=== PATIENT | male | born 1975 | race Caucasian/White ===

== ENCOUNTER 2017-02-14 17:34 | Inpatient (IN) | payer OTHER ==
[~2017-02-14] VITALS: Ht 170.2 cm; Wt 77.1 kg
[2017-02-14 17:52] VITALS: BP_SYST 137
[2017-02-14] MEDS ORDERED: ASPIRIN 81 MG TAB.CHEW PO ONE (18:15)
[2017-02-14 18:33] LABS: HEMATOCRIT 51.5 % (36-54); HEMOGLOBIN 17.6 g/dL (14.0-18.0); MEAN CORPUSCULAR HEMOGLOBIN 32 pg (27-31); MEAN CORPUSCULAR HGB CONC 34 % (32-36); MEAN CORPUSCULAR VOLUME 93 fL (79.0-98.0); PLATELET COUNT (AUTO) 197 K/uL (130-430); RED BLOOD CELL COUNT(AUTO) 5.53 MIL/uL (4.2-6.2); RED CELL DISTRIBUTION WIDTH 12.4 % (9.0-15.0); WHITE BLOOD COUNT (AUTO) 6.4 K/uL (4.8-10.8)
[2017-02-14 18:40] LABS: CREATININE 1.07 mg/dL (0.55-1.30); POTASSIUM 3.6 mmol/L (3.5-5.1)
[2017-02-14 18:46] LABS: ALBUMIN 3.7 g/dL (3.4-4.8); TOTAL BILIRUBIN 1.3 mg/dL (0.0-1.0); TOTAL PROTEIN, SERUM 8.2 g/dL (6.4-8.3)
[2017-02-14 18:52] LABS: BAND % (MANUAL) 19 % (0-6); BASOPHILS % (MANUAL) 0 % (0-2); EOSINOPHILS % (MANUAL) 0 % (0-7); LYMPHOCYTES % (MANUAL) 6 % (20-46); MONOCYTES % (MANUAL) 3 % (0-11)
[2017-02-14] MEDS ORDERED: ONDANSETRON HCL 4 MG/2 ML VIAL IVP ONE ×2 (19:00→21:15)
[2017-02-14] MEDS ORDERED: KETOROLAC TROMETHAMINE 30 MG VIAL IVP ONE (19:00)
[2017-02-14] MEDS ORDERED: NACL 0.9% 1,000 ML IV ONE (19:00)
[2017-02-14] MEDS ORDERED: HYDROmorphone 1 MG INJ. 1 MG/ML AMPUL IVP ONE (21:15)
[2017-02-14 21:42] LABS: BLOOD, URINE NEGATIVE (NEGATIVE); CLARITY/URINE CLEAR (CLEAR); GLUCOSE,URINE NEGATIVE (NEGATIVE); KETONES,URINE 3+ (NEGATIVE); LEUKOCYTE ESTERASE ,URINE NEGATIVE (NEGATIVE); NITRITE, URINE NEGATIVE (NEGATIVE); PH,URINE 6.5 (5.0-8.0); PROTEIN URINE 1+ (NEGATIVE)
[2017-02-14 21:49] LABS: BILIRUBIN,URINE NEGATIVE (NEGATIVE); COLOR,URINE AMBER (YELLOW)
[2017-02-14 21:51] LABS: BACTERIA,URINE FEW /HPF (None Seen); MUCUS,URINE None Seen /LPF (None Seen); RBC,URINE NONE SEEN /HPF (0-3); WBC,URINE 0-3 /HPF (0-3)
[2017-02-14 21:52] LABS: BARBITURATE, URINE NEGATIVE (NEG <=200); BENZODIAZEPINE, URINE NEGATIVE (NEG <=150); CANNABINOID, URINE POSITIVE (NEG <=50); COCAINE, URINE NEGATIVE (NEG <=150); METHAMPHETAMINES SCREEN,URINE NEGATIVE (NEG <=500); OPIATE, URINE POSITIVE (NEG <=100); PHENCYCLIDINE SCREEN,URINE NEGATIVE (NEG <=25); UR TRICYCLIC ANTIDEPRESSANTS NEGATIVE (NEG <=300); URINE AMPHETAMINE NEGATIVE (NEG <=500); URINE METHADONE NEGATIVE (NEG <=200); URINE OXYCODONE SCREEN NEGATIVE (NEG <=100); URINE PROPOXYPHENE SCREEN NEGATIVE (NEG <=300)
[2017-02-15] MEDS ORDERED: ONDA8TAB9 PO (00:34)
[2017-02-15] MEDS ORDERED: DIPH-179 PO (00:35)
[2017-02-15] MEDS ORDERED: AMOX500C2 PO (00:35)
[2017-02-15 00:42] VITALS: BP_SYST 133
[2017-02-15] MEDS ORDERED: PIPERACILLIN/TAZOBACTAM 3.375 GM/VIAL (ZOSYN) IV ONE (01:02)
[2017-02-15] MEDS: PIPERACILLIN/TAZO 3.375/DEX-IS 50 ML IV SCH ×5 (01:06→23:39)
[2017-02-15] MEDS: KETOROLAC TROMETHAMINE 15 MG VIAL IVP PRN ×2 (01:55→08:49)
[2017-02-15 05:08] VITALS: BP_SYST 108
[2017-02-15] MEDS: ONDANSETRON HCL 4 MG/2 ML VIAL IM PRN ×2 (06:21→18:26)
[2017-02-15] MEDS: 0.45% NACL 1,000 ML IV SCH ×3 (06:22→16:18)
[2017-02-15 08:02] LABS: BASOPHILS % (AUTO) 0.5 % (0.0-2.0); HEMOGLOBIN 15.9 g/dL (14.0-18.0); LYMPHOCYTES # (AUTO) 0.8 K/uL (1.0-5.5); LYMPHOCYTES % (AUTO) 8.4 % (20.5-51.5); MEAN CORPUSCULAR HEMOGLOBIN 32 pg (27-31); MEAN CORPUSCULAR HGB CONC 34 % (32-36); MEAN CORPUSCULAR VOLUME 94 fL (79.0-98.0); MONOCYTES # (AUTO) 0.1 K/uL (0.0-1.0); NEUTROPHILS # (AUTO) 8.2 K/uL (1.8-7.7); NEUTROPHILS % (AUTO) 90.1 % (40.0-70.0); PLATELET COUNT (AUTO) 197 K/uL (130-430); RED BLOOD CELL COUNT(AUTO) 4.99 MIL/uL (4.2-6.2); RED CELL DISTRIBUTION WIDTH 12.6 % (9.0-15.0); WHITE BLOOD COUNT (AUTO) 9.1 K/uL (4.8-10.8)
[2017-02-15 08:07] LABS: ALBUMIN 3.1 g/dL (3.4-4.8); CALCIUM 8.5 mg/dL (8.4-11.0); CREATININE 1.1 mg/dL (0.55-1.30); PHOSPHORUS 2.2 mg/dL (2.7-4.5); POTASSIUM 3.4 mmol/L (3.5-5.1); TOTAL BILIRUBIN 1.2 mg/dL (0.0-1.0); TOTAL PROTEIN, SERUM 7.1 g/dL (6.4-8.3)
[2017-02-15 09:51] VITALS: BP_SYST 139
[2017-02-15] MEDS ORDERED: POTASSIUM CHLORIDE 20 MEQ TAB.PRT.SR PO ONE (10:30)
[2017-02-15 12:36] VITALS: BP_SYST 140
[2017-02-15] MEDS ORDERED: KETOROLAC TROMETHAMINE 15 MG VIAL ONE (13:41)
[2017-02-15] MEDS: MORPHINE 2 MG/ML INJ. SYRINGE IVP PRN ×2 (16:16→20:27)
[2017-02-15 16:40] VITALS: BP_SYST 125
[2017-02-15 20:00] VITALS: BP_SYST 113
[2017-02-15] MEDS: ACETAMINOPHEN 325 MG TABLET PO PRN (20:28)
[2017-02-16 01:16] VITALS: BP_SYST 125
[2017-02-16] MEDS: ONDANSETRON HCL 4 MG/2 ML VIAL IM PRN ×4 (04:07→20:52)
[2017-02-16] MEDS: MORPHINE 2 MG/ML INJ. SYRINGE IVP PRN ×4 (04:10→18:12)
[2017-02-16] MEDS: 0.45% NACL 1,000 ML IV SCH ×2 (04:17→16:13)
[2017-02-16] MEDS: ACETAMINOPHEN 325 MG TABLET PO PRN (04:17)
[2017-02-16 04:44] VITALS: BP_SYST 113
[2017-02-16] MEDS: PIPERACILLIN/TAZO 3.375/DEX-IS 50 ML IV SCH (05:34)
[2017-02-16 06:41] LABS: CALCIUM 8.4 mg/dL (8.4-11.0); CREATININE 0.97 mg/dL (0.55-1.30); TOTAL PROTEIN, SERUM 6.9 g/dL (6.4-8.3)
[2017-02-16 06:56] LABS: PROTHROMBIN TIME 11.3 SECS (9.5-12.5)
[2017-02-16 07:04] LABS: BASOPHILS % (AUTO) 0.2 % (0.0-2.0); EOSINOPHILS % (AUTO) 0.1 % (0.0-4.0); HEMATOCRIT 47.5 % (36-54); HEMOGLOBIN 15.5 g/dL (14.0-18.0); LYMPHOCYTES # (AUTO) 0.7 K/uL (1.0-5.5); LYMPHOCYTES % (AUTO) 6.9 % (20.5-51.5); MEAN CORPUSCULAR HEMOGLOBIN 31 pg (27-31); MEAN CORPUSCULAR HGB CONC 33 % (32-36); MEAN CORPUSCULAR VOLUME 95 fL (79.0-98.0); MONOCYTES # (AUTO) 0.5 K/uL (0.0-1.0); MONOCYTES % (AUTO) 5.3 % (1.7-9.3); NEUTROPHILS # (AUTO) 8.4 K/uL (1.8-7.7); NEUTROPHILS % (AUTO) 87.5 % (40.0-70.0); PLATELET COUNT (AUTO) 187 K/uL (130-430); RED CELL DISTRIBUTION WIDTH 12.5 % (9.0-15.0); WHITE BLOOD COUNT (AUTO) 9.6 K/uL (4.8-10.8)
[2017-02-16 08:00] VITALS: BP_SYST 137
[2017-02-16] MEDS ORDERED: COMMUNICATION ORDER XX ONE (11:00)
[2017-02-16 11:42] VITALS: BP_SYST 135
[2017-02-16] MEDS: cefTRIAXone 1 GM in D5W 50 ML IV SCH (11:53)
[2017-02-16] MEDS: KETOROLAC TROMETHAMINE 15 MG VIAL IVP PRN ×3 (12:12→22:16)
[2017-02-16 16:43] VITALS: BP_SYST 125
[2017-02-16 20:00] VITALS: BP_SYST 150
[2017-02-17 00:37] VITALS: BP_SYST 132
[2017-02-17] MEDS: 0.45% NACL 1,000 ML IV SCH ×2 (02:12→12:14)
[2017-02-17] MEDS: KETOROLAC TROMETHAMINE 15 MG VIAL IVP PRN ×3 (02:14→10:41)
[2017-02-17] MEDS: MORPHINE 2 MG/ML INJ. SYRINGE IVP PRN (07:18)
[2017-02-17 08:00] VITALS: BP_SYST 137
[2017-02-17] MEDS: cefTRIAXone 1 GM in D5W 50 ML IV SCH (10:41)
[2017-02-17] MEDS: ONDANSETRON HCL 4 MG/2 ML VIAL IM PRN (10:41)
[2017-02-17] MEDS ORDERED: PANTOPRAZOLE SODIUM 40 MG/VIAL (PROTONIX) IVP ONE (11:00)
[2017-02-17 11:52] VITALS: BP_SYST 136
[2017-02-17] MEDS ORDERED: HYDROmorphone 2 MG/ML VIAL IVP PRN (12:30)
[2017-02-17] MEDS ORDERED: SIMETHICONE 40 MG/0.6 ML ML ONE (13:57)
[2017-02-17 14:27] LABS: HEPATITIS A AB, IgM Negative (Negative); HEPATITIS B CORE AB, IgM Negative (Negative); HEPATITIS B SURFACE AG Negative (Negative)
[2017-02-17] MEDS: MIDAZOLAM HCL 5 MG/5 ML VIAL ONE ×6 (15:15→15:27)
[2017-02-17] MEDS: fentaNYL CITRATE/PF 100 MCG/2 ML AMP ONE ×6 (15:15→15:27)
[2017-02-17] MEDS ORDERED: DIPHENHYDRAMINE INJ 50 MG/ML VIAL ONE (15:29)
[2017-02-17 18:06] VITALS: BP_SYST 139
[2017-02-17 19:12] LABS: ANTI NUCLEAR AB WITH REFLEX Negative (Negative)
[2017-02-17 19:30] VITALS: BP_SYST 139
[2017-02-17] MEDS: HYDROmorphone 1 MG INJ. 1 MG/ML AMPUL IVP PRN (19:40)
[2017-02-17] MEDS: PANTOPRAZOLE SODIUM 40 MG/VIAL (PROTONIX) IVP SCH (21:04)
[2017-02-18 01:15] VITALS: BP_SYST 129
[2017-02-18] MEDS: HYDROmorphone 1 MG INJ. 1 MG/ML AMPUL IVP PRN (02:02)
[2017-02-18] MEDS: 0.45% NACL 1,000 ML IV SCH ×2 (03:22→08:36)
[2017-02-18 04:00] VITALS: BP_SYST 126
[2017-02-18 07:37] LABS: ALBUMIN 2.9 g/dL (3.4-4.8); BILIRUBIN,DIRECT 0.2 mg/dL (0.0-0.3); TOTAL BILIRUBIN 0.6 mg/dL (0.0-1.0); TOTAL PROTEIN, SERUM 6.4 g/dL (6.4-8.3)
[2017-02-18] MEDS: PANTOPRAZOLE SODIUM 40 MG/VIAL (PROTONIX) IVP SCH (08:36)
[2017-02-18] MEDS: ACETAMINOPHEN 325 MG TABLET PO PRN (08:36)
[2017-02-18 09:26] LABS: CMV, IgM <30.0 AU/mL (0.0-29.9)
[2017-02-18] MEDS: cefTRIAXone 1 GM in D5W 50 ML IV SCH (11:07)
[2017-02-18 11:49] LABS: FERRITIN 3503 ng/mL (30-400)
[2017-02-18 13:27] VITALS: BP_SYST 126
[2017-02-19 10:11] LABS: AMEBIASIS ANTIBODIES Negative (Negative)
[2017-02-19 15:05] LABS: EBV AB VCA, IgM <36.0
[2017-02-20 11:08] LABS: ANTI-SMOOTH MUSCLE AB 10 Units (0-19)
== END 2017-02-18 14:10 | disposition short-term general hospital (02) | DRG 384 ==
LOC: SED 17:34 → SMU 22:55
PROVIDERS: ATTEND Internal Medicine Hospice and Palliative Medicine
PROC: 0DB98ZX Excision of Duodenum, Via Natural or Artificial Opening Endoscopic, Diagnostic (ICD-10-PCS; principal; 2017-02-17 15:00)
DX: K26.9 Duodenal ulcer, unspecified as acute or chronic, without hemorrhage or perforation (principal); E44.1 Mild protein-calorie malnutrition; K75.9 Inflammatory liver disease, unspecified; R10.9 Unspecified abdominal pain; F12.90 Cannabis use, unspecified, uncomplicated; R11.0 Nausea; R19.7 Diarrhea, unspecified; R50.9 Fever, unspecified; R74.8 Abnormal levels of other serum enzymes; D72.825 Bandemia; E86.0 Dehydration; F17.210 Nicotine dependence, cigarettes, uncomplicated; K20.9 Esophagitis, unspecified; K29.70 Gastritis, unspecified, without bleeding; Z68.26 Body mass index [BMI] 26.0-26.9, adult
CPT/HCPCS: 36415; 43239; 71010; 74181; 76700-TC; 80053; 80074; 80076; 80307; 81000-TC; 82728; 82941; 83516; 83605; 83690-TC; 83735-TC; 83880; 84100-TC; 84484; 85007; 85025; 85027; 85610-TC; 85730-TC; 86038; 86645; 86665; 86753; 87040-TC; 87081; 88305; 88312; 88313; 93005; 96374; 96375; 96376; 99285; C9113; J0696; J1170; J1200; J1885; J2250; J2270; J2405; J2543; J3010; J7060